=== PATIENT | female | born 2000 | race Caucasian/White ===

== ENCOUNTER → 2018-10-04 | Outpatient (CLI) | payer BC ==
--- NOTE | 2018-10-04 12:37 | Diagnostic Imaging Report ---
PROCEDURE: CT abdomen and pelvis without contrast. TECHNIQUE: Multiple contiguous axial images were obtained through the abdomen and pelvis without the use of intravenous contrast. INDICATION: Hematuria and low back pain. COMPARISON: No prior studies are available for comparison. FINDINGS: The lung bases are clear. The liver and gallbladder are unremarkable. The pancreas and spleen are unremarkable. No adrenal mass is detected. There is a tiny nonobstructing calculus in the mid right kidney. No hydronephrosis is seen. No definite ureteral or bladder calculi are identified. No perinephric inflammatory stranding is seen. The small and large bowel loops are unremarkable. There are some mildly prominent lymph nodes in the right lower quadrant mesentery medial to the cecum, perhaps on the basis of mesenteric adenitis. The appendix is unremarkable. The uterus and ovaries are unremarkable. There is no ascites. IMPRESSION: 1. Tiny nonobstructing right renal calculus. 2. Mildly prominent right lower quadrant lymph nodes, perhaps on the basis of mesenteric adenitis. No other significant abnormality is seen. 3. Results were discussed with Dr. Tya prior to this dictation. Dictated by: Dictated on workstation # [id number]
== END ==
LOC: RAD 12:01
PROVIDERS: ATTEND Internal Medicine
DX: N20.0 Calculus of kidney (principal); N39.0 Urinary tract infection, site not specified
CPT/HCPCS: 74176